=== PATIENT | female | born 1965 | race Caucasian/White ===

== ENCOUNTER 2018-09-25 12:01 | Emergency (ER) | payer BC ==
--- OUTSIDE RECORDS SUMMARY | 2018-09-25 12:09 | XMS REPORT | Continuity of Care Document ---
:1965 External Reference #:[id number] Author Name Lucien ZamoraDO Address [address] [place] [address] Care Team Providers Name Role Phone Iker Pride MD Care Team Information Production Control Planner Unavailable Iker Pride MD Primary Care Physician Unavailable Payers Date Identification Numbers Payment Provider Subscriber Policy Number: [id number] [facility] [employer] Soraida Araiza PayID: [id number] [address] [place] [address] Social History Type Date Description Comments Sex Unknown Tobacco Use Start: Unknown Patient has never smoked Smoking Status Reviewed: 08/24/18 Patient has never smoked Allergies, Adverse Reactions, Alerts Active Allergies Reaction Severity Comments Date Codeine 04/08/2003 Medications Active Medications SIG Qnty Indications Ordering Date Provider Escitalopram Oxalate 1 by mouth every 90tabs F32.9 Iker Pride MD 2013 day 20mg Tablets Claritin 1 po qd seasonally 20caps J30.2 Iker Pride MD 08/09/2011 10mg Capsules Aleve prn Unknown 220mg Tablets Tretinoin apply every at Unknown 0.05% Cream bedtime to affected area History Medications Amoxicillin take one by 14tabs K57.12 Piedad Miles NP 08/06/2018 - 875mg mouth twice 08/24/2018 Tablets daily for 7 days Colyte With Flavor by mouth as 4000ml Isamar Lozoya, 08/28/2017 - Packs directed PA-C 08/24/2018 240gm Solution Rec Escitalopram take 1 tablet 90tabs F32.9 Iker Pride MD 05/04/2013 - Oxalate by mouth daily 08/24/2018 20mg Tablets Atralin Apply to Unknown - 0.05% Gel affected 08/24/2018 area's at bedtime, wash off in am Vital Signs Date Vital Result Comment 08/24/2018 3:29pm Height 65 inches 5'5" Weight 140.00 lb BP Systolic 117 mmHg BP Diastolic 70 mmHg Heart Rate 69 /min BMI (Body Mass Index) 23.3 kg/m2 08/28/2017 12:50pm Height 65 inches 5'5" Weight 138.00 lb BMI (Body Mass Index) 23.0 kg/m2 Results Test Date Facility Test Result H/L Range Note Laboratory test N2N/CCD Import Hemoglobin A1c 4.9 % 4.1-5.7 1 finding 8 ([facility]) Lab Results N2N/CCD Import Antinuclear Positive Abnormal 2 8 Antibodies, Ifa Homogeneous Pattern TNP Nucleolar Pattern TNP Speckled Pattern 1:640 High 3 Centromere Pattern TNP Spindle Apparatus Pattern TNP Nuclear Membrane Pattern TNP Midbody Pattern TNP Nuclear Dot Pattern TNP Pcna Pattern TNP Centriole Pattern TNP Note: See Comment: 4 Rheumatoid 07/31/2017 N2N/CCD Import Ra Latex Turbid. <10.0 Iu/ml 0- 13.9 Arthritis Factor ([facility]) Lab Results 07/31/2017 N2N/CCD Import C-Reactive 0.7 mg/L 0-4.9 Protein, Quant Hemoglobin A1c ([facility]) 4.9 % 4.1-5.7 Lab Results 07/31/2017 N2N/CCD Import TSH 2.22 mIU/L 0.5-6 WBC 4.1 10^3/uL 4-10 RBC 3.92 10^6/uL Low 3.93-6 HGB 13.4 g/dL 12-17 HCT 39 % 35-50 MCV 98.2 fL High 80-95 5 MCH 34.2 pg High 25.6-32.2 MCHC 34.8 g/dL 32.2-36 RDW-CV 11.6 % 11.6-14.4 PLT 208 10^3/uL 163-400 MPV 10.1 fL 9.4-12.4 Liu# 1.72 10^3/uL 1.56-6.13 Lymph# 1.81 10^3/uL 1.18-3.74 [place]# 0.50 10^3/uL 0.24-0.82 Eos # 0.1 10^3/uL 0-0.5 Baso # 0.03 10^3/uL 0.01-0.08 Liu% 41.7 % 34-70 Lymph % 43.8 % 20-52 [place]% 12.1 % High 5-12 Eos% 1.7 % 0.7-7 Baso% 0.7 % 0.1-1.2 Lab Results 07/31/2017 N2N/CCD Import WBC 4.1 10^3/uL 4-10 RBC 3.92 10^6/uL Low 3.93-6 HGB 13.4 g/dL 12-17 HCT 39 % 35-50 MCV 98.2 fL High 80-95 6 MCH 34.2 pg High 25.6-32.2 MCHC 34.8 g/dL 32.2-36 RDW-CV 11.6 % 11.6-14.4 PLT 208 10^3/uL 163-400 MPV 10.1 fL 9.4-12.4 Liu# 1.72 10^3/uL 1.56-6.13 Lymph# 1.81 10^3/uL 1.18-3.74 [place]# 0.50 10^3/uL 0.24-0.82 Eos # 0.1 10^3/uL 0-0.5 Baso # 0.03 10^3/uL 0.01-0.08 Liu% 41.7 % 34-70 Lymph % 43.8 % 20-52 [place]% 12.1 % High 5-12 Eos% 1.7 % 0.7-7 Baso% 0.7 % 0.1-1.2 Comprehensive Metabolic Prof 07/31/2017 N2N/CCD Import Sodium 134 mEq/L 134-149 Potassium 4.0 mEq/L 3.6-5.5 Chloride 98 mEq/L 94-112 Carbon Dioxide 26 mEq/L 21-32 Glucose 95 mg/dL 70-105 BUN 15 mg/dL 6-26 Creatinine 0.7 mg/dL 0.6-1.4 BUN/Creat Ratio 21.4 CALC 8-36 Calcium 9.3 mg/dL 8.6-10.2 Total Protein 7.0 g/dL 6.4-8.3 Albumin 4.7 g/dL 3.8-5.5 Globulin 2.3 g/dL 2-4.8 A/G Ratio 2.0 CALC 0.6-2.3 Alk. Phosphatase 52 U/L 30-110 Alt (SGPT) 12 U/L 7-35 Ast (Sgot) 21 U/L 5-34 Total Bilirubin 1.3 mg/dL 0.2-1.3 GFR Non- >60 ml/min/1.73m^ GFR >60 ml/min/1.73m^ Lipid Profile 07/31/2017 [email or web address] Import Cholesterol 246 mg/dL High 120- 200 Triglycerides 48 mg/dL 30-200 HDL Cholesterol 119 mg/dL High 30-85 LDL (Calculated) 117 CALC 0-129 VLDL Cholesterol 10 mg/dL 0-50 HDL Risk Factor 2.1 CALC 0-4.4 Lab Results 07/31/2017 [email or web address] Import Vitamin D25 42 1 30-100 Complete Blood Count 03/05/2017 [facility] BV/FamilyID Import Gran # 2.6 10^3/uL 1.5- 7.2 Gran % 54.0 % 42.2-75.2 HCT 36 % 36-50 HGB 11.4 g/dL Low 12.1-17.2 Lymph % 40.9 % 20.5-51.1 Lymph# 1.8 10^3/uL 0.7-4.9 MCH 34.0 pg High 27.6-33.3 MCHC 33.5 g/dL 33.0-35.5 MCV 102.0 fL High 82.2-97.4 MPV 7.8 fL 7.4-10.4 [place]# 0.2 10^3/uL 0.1-0.9 [place]% 5.1 % 1.7-9.3 PLT 201 10^3/uL 150-400 RBC 3.36 10^6/uL Low 3.90-5.70 RDW 13.5 % 11.6-13.7 WBC 4.6 10^3/uL 3.6-9.6 Comprehensive Metabolic Prof 03/05/2017 [email or web address] Import A/G Ratio 2.0 CALC 0.6-2.3 Albumin 4.0 g/dL 3.8-5.5 Alk. Phosphatase 52 U/L 30-110 Alt (SGPT) 10 U/L 7-35 Ast (Sgot) 16 U/L 5-34 BUN 15 mg/dL 6-26 BUN/Creat Ratio 21.4 CALC 8.0-36.0 Calcium 8.7 mg/dL 8.6-10.2 Carbon Dioxide 25 mEq/L 21-32 Chloride 104 mEq/L 94-112 Creatinine 0.7 mg/dL 0.6-1.4 GFR >60 ml/min/1.73m^ >=60 GFR Non- >60 ml/min/1.73m^ >=60 Globulin 2.0 g/dL 2.0-4.8 Glucose 143 mg/dL High 70-105 7 Potassium 3.9 mEq/L 3.6-5.5 Sodium 138 mEq/L 134-149 Total Bilirubin 0.5 mg/dL 0.2-1.3 Total Protein 6.0 g/dL Low 6.4-8.3 8 CBC With 02/15/2015 N2N/CCD Import Baso 0.0 x10E3/uL 0.0-0.2 9 Differential/Platelet (Absolute) Basos 1 % Eos 3 % Eos (Absolute) 0.1 x10E3/uL 0.0-0.4 Hematocrit 36.5 % 34.0-46.6 Hematology Comments: TNP Hemoglobin 12.1 g/dL 11.1-15.9 Immature Cells TNP Immature Grans (Abs) 0.0 x10E3/uL 0.0-0.1 Immature Granulocytes 0 % Lymphs 47 % Lymphs (Absolute) 1.7 x10E3/uL 0.7-3.1 MCH 32.5 pg 26.6-33.0 MCHC 33.2 g/dL 31.5-35.7 MCV 98 fL High 79-97 Monocytes 12 % Monocytes(Absolute) 0.4 x10E3/uL 0.1-0.9 NRBC TNP Neutrophils 37 % Neutrophils (Absolute) 1.3 x10E3/uL Low 1.4-7.0 Platelets 239 x10E3/uL 150-379 RBC 3.72 x10E6/uL Low 3.77-5.28 RDW 13.5 % 12.3-15.4 WBC 3.6 x10E3/uL 3.4-10.8 Comp. Metabolic Panel (14) 02/15/2015 N2N/CCD Import A/G Ratio 2.0 1 1.1 -2.5 Albumin, Serum 4.3 g/dL 3.5-5.5 Alkaline Phosphatase, S 57 IU/L 39-117 Alt (SGPT) 12 IU/L 0-32 Ast (Sgot) 21 IU/L 0-40 BUN 10 mg/dL 6-24 BUN/Creatinine Ratio 14 1 9-23 Bilirubin, Total 0.7 mg/dL 0.0-1.2 Calcium, Serum 9.1 mg/dL 8.7-10.2 Carbon Dioxide, Total 24 mmol/L 18-29 Chloride, Serum 102 mmol/L 97-108 Creatinine, Serum 0.70 mg/dL 0.57-1.00 Globulin, Total 2.2 g/dL 1.5-4.5 Glucose, Serum 84 mg/dL 65-99 Potassium, Serum 4.6 mmol/L 3.5-5.2 Protein, Total, Serum 6.5 g/dL 6.0-8.5 Sodium, Serum 141 mmol/L 134-144 eGFR If Africn Am 118 mL/min/1.73 >59 eGFR If NonAfricn Am 102 mL/min/1.73 >59 TSH+Free T4 02/15/2015 N2N/CCD Import T4,Free(Direct) 1.11 ng/dL 0.82- 1.77 TSH 1.470 uIU/mL 0.450-4.500 1 3 sst 2 Negative <1:80 Borderline 1:80 Positive >1:80 3 Dense Fine Speckled pattern is noted. This pattern suggests the presence of DFS70 antibody which has a low prevalence in systemic autoimmune rheumatic diseases. 4 A positive JG result may occur in healthy individuals (low titer) or be associated with a variety of diseases. See interpretation chart which is not all inclusive: Pattern Antigen Detected Suggested Disease Association Homogeneous DNA(ds,ss), SLE - High titers Nucleosomes, Histones Drug-induced SLE Speckled Sm, TELEVISION CAMERAMAN, SCL-70, SLE,MCTD,PSS (diffuse form), SS-A/SS-B Sjogrens Nucleolar SCL-70, PM-1/SCL High titers Scleroderma, PM/DM Centromere Centromere PSS (limited form) w/Crest syndrome variable Nuclear Dot Sp100,[id number] Primary Biliary Cirrhosis Nuclear GP210, Primary Biliary Cirrhosis Membrane idania A,B,C 5 consistent w/ previous results 6 consistent w/ previous results 7 NON-FASTING 8 RESULTS VERIFIED BY REPEAT ANALYSIS 9 2 SSTS Procedures Date Code Description Status 11/11/2017 30597 Moderate Sedation Services; Same Phys Each Additional 15 Completed Mins 11/11/2017 31652 Moderate Sedation Services; Same Phys Intl 15 Mins; PT >=5 Completed Years 11/11/2017 15705 Colonoscopy Completed
[2018-09-25 12:37] VITALS: BP 114/54
[2018-09-25] MEDS ORDERED: Tetan/Diph/Pertus SYR(Tdap)* 0.5 ML SYR(BOOSTRIX) use SYR IM ONE (13:37)
--- NOTE | 2018-09-25 13:37 | UC ---
Bite Injury/Animal HPI - HPI Summary HPI Summary: 53 year old female no PMH presents after dog bite yesterday to hand. Cleaned out well, no redness, minimal pain. Dog vaccinated, available for obseration. Patient declined rabies vaccination. Unknown tetanus, called PCP on way over. Concerned bc has equestrian riding event tomorrow with increased bending , laceration over 2nd pawel kuckle. no fever, chills - History of Current Complaint Chief Complaint: UCBiteInjury Stated Complaint: BITE RT HAND Time Seen by Provider: 09/25/18 13:16 Hx Obtained From: Patient ?: No Severity Currently: Mild Severity Initially: Mild Pain Intensity: 2 Pain Scale Used: 0-10 Numeric Type of Bite: Pet - dog, neighbor, available for observation. Has Animal Been Immunized?: Yes Character: Full-Thickness Aggravating Factor(s): Exertion Alleviating Factor(s): Rest Associated Signs And Symptoms: Positive: Swelling Animal Available for Observation: Yes - Allergies/Home Medications Allergies/Adverse Reactions: Allergies Allergy/AdvReac Type Severity Reaction Status Date / Time acetaminophen [From Percocet] Allergy Vomiting Verified 09/25/18 12:38 codeine Allergy Vomiting Verified 09/25/18 12:38 oxycodone [From Percocet] Allergy Vomiting Verified 09/25/18 12:38 Home Medications: Home Medications Ivermectin (NF) [Stromectol (NF)] 3 mg TOPICAL DAILY 09/25/18 [History Confirmed 09/25/18] PMH/Surg Hx/FS Hx/Imm Hx Previously Healthy: Yes - Surgical History Surgical History: Yes Surgery Procedure, Year, and Place: BROKEN ARM WITH STEEL PLATE 2009 RIGHT. D& C 10/2015 - Family History Known Family History: Positive: Non-Contributory - Social History Alcohol Use: Daily Substance Use Type: None Smoking Status (MU): Never Smoked Tobacco Review of Systems All Other Systems Reviewed And Are Negative: Yes Constitutional: Positive: Negative Skin: Positive: Other - laceration PIP 2st finger Musculoskeletal: Positive: Myalgia Is Patient Immunocompromised?: No Physical Exam Triage Information Reviewed: Yes Appearance: Well-Appearing, No Pain Distress, Well-Nourished Vital Signs: Initial Vital Signs Temp 98.8 F 09/25/18 12:27 Pulse 72 09/25/18 12:27 Resp 12 09/25/18 12:27 BP 114/54 08/02/19 12:27 Pulse Ox 99 09/25/18 12:27 Vital Signs Reviewed: Yes Eyes: Positive: Conjunctiva Clear ENT: Positive: Hearing grossly normal Musculoskeletal: Positive: Strength Intact, ROM Intact, No Edema, Other: - no erythema, no streaking Neurological Exam: Normal Neurological: Positive: Alert, Other: - SITLT Psychological Exam: Normal Skin: Positive: Other - laceration to PIP 2nd finger, right hand. healing well. Bite Injury Course/Dx - Course Course Of Treatment: Animal bite wound > 24 hours old - Antibiotics as directed - Wound care as shown - Follow up with any redness, joint pain, swelling, numbness - Differential Dx/Diagnosis Differential Diagnosis/HQI/PQRI: Laceration Provider Diagnosis: Animal bite wound Discharge - Sign-Out/Discharge Documenting (check all that apply): Patient Departure All imaging exams completed and their final reports reviewed: No Studies - Discharge Plan Condition: Good Disposition: HOME Prescriptions: Amoxicillin/Clavulanate TAB* [Augmentin TAB 875*] 875 mg PO BID #14 tab Patient Education Materials: Animal Bite (ED) Referrals: Iker Pride MD [Primary Care Provider] - Additional Instructions: - Antibiotics as directed - Wound care as shown - Follow up with any redness, joint pain, swelling, numbness - Billing Disposition and Condition Condition: GOOD Disposition: Home
== END 2018-09-25 14:00 | disposition home or self-care (01) ==
LOC: UCEAST 12:01
DX: S61.451A Open bite of right hand, initial encounter (principal); W54.0XXA Bitten by dog, initial encounter; Y92.9 Unspecified place or not applicable; Z88.5 Allergy status to narcotic agent
CPT/HCPCS: 90715; 99212; G0463